=== PATIENT | female | born 1945 | race Two or more races ===

== ENCOUNTER 2021-08-19 15:32 | Emergency (ER) | payer OTHER ==
[~2021-08-19] VITALS: Ht 162.6 cm; Wt 52.2 kg
[2021-08-19 15:36] VITALS: BP 131/84
--- NOTE | 2021-08-19 15:42 | NUR ---
BIB [facility] FOR ADHD AND CHRONIC PAIN MED "MOVED [facility] & NO PSYCH VISIT YET. THE PATIENT IS ALERT AND ORIENTED X3. IN ROOM AIR AND DENIES SOB. RESPIRATION REGULAR AND UNLABORED. DENIES SI/HI. DENIES HAVING ANY HALLUCINATIONS. WILL CONTINUE TO MONITOR THE PATIENT.
[2021-08-19] MEDS ORDERED: CLON1TAB12 PO (16:42)
[2021-08-19] MEDS ORDERED: ZOLP10TA2 PO (16:42)
[2021-08-19] MEDS ORDERED: HYDR-3980 PO (16:42)
[2021-08-19] MEDS ORDERED: DEXT30CA6 PO (16:42)
--- NOTE | 2021-08-19 16:47 | NUR ---
Patient discharged to home in stable condition. Written and verbal after care instructions given. Patient verbalizes understanding of instruction.
== END 2021-08-19 16:48 | disposition home or self-care (01) ==
LOC: ER 15:44
DX: Z76.0 Encounter for issue of repeat prescription (principal); I10 Essential (primary) hypertension; F41.9 Anxiety disorder, unspecified; Z96.642 Presence of left artificial hip joint